=== PATIENT | female | born 1955 | race Asian ===

== ENCOUNTER 2016-10-20 11:15 | Observation (INO) | payer OTHER ==
[2016-10-20] VITALS (10 sets, daily range): BP systolic 73–192; BP diastolic 45–95; PULSE 62–78; RESP 16–18; TEMP 98.2–98.8; O2SAT 96–99
[~2016-10-20] VITALS: Ht 157.5 cm; Wt 59.0 kg
[~2016-10-20 11:15] MED LIST: ASPI81TA81; BETH25 PO; ENAL10TA PO; FLUT1SPR5 EACH NARE; ISOS1TAB PO; MAGN400T14 PO; METO25TA3 PO; MULTCAP13 PO; ZOCO40TA PO; ZOFR8TAB PO
--- NOTE | 2016-10-20 14:41 | EKG ---
Date Performed: 10/20/2016 Time Performed: 11:49:21 PTAGE: 61 years EKG: Sinus rhythm NONSPECIFIC ST & T-WAVE ABNORMALITY BORDERLINE ECG PREVIOUS TRACING : 04/15/2015 19.43 Since previous tracing, no significant change noted DOCTOR: Joanne Soler Interpretating Date/Time 10/20/2016 14:36:17
[2016-10-20] MEDS ORDERED: SODIUM CHLORIDE 0.9% FLUSH 5 ML FLUSH IVF PRN ×2 (15:30→16:00)
[2016-10-20] MEDS ORDERED: ENAL10TA PO (15:52)
[2016-10-20] MEDS ORDERED: ISOS30TA3 PO (15:52)
[2016-10-20] MEDS ORDERED: METO50TA PO (15:52)
[2016-10-20] MEDS ORDERED: ZANT150T2 PO (15:52)
--- NOTE | 2016-10-20 15:53 | PD ---
HPI Chief Complaint: Chest Pain Time Seen by Provider: 15:29 Travel History International Travel<30 days: No Contact w/Intl Traveler<30days: No Traveled to known affect area: No History of Present Illness HPI The patient was seen and examined in the presence of the nurse. She complains of chest pain. Location is center sternum. It feels like someone is punching her in the chest. It's been going on for one week. No alleviating factors. Symptoms are nonexertional. No radiation. She denies history of coronary disease but she doesn't seem real certain. She does see a [employer] for arrhythmia evaluation. She says she has an implanted loop recorder. No syncope. Symptoms have moderate severity. PFSH Past Medical History Hx Anticoagulant Therapy: Yes Blood Disorders: No Cancer: No Cardiovascular Problems: Yes Chest Pain: Yes Dementia: Yes Diabetes: Yes (history of PRE--DIET CONTROLLED) Endocrine: Yes GERD: Yes Genitourinary: No Headaches: Yes (post concussion syndrome) Hypertension: Yes Immune Disorder: No Musculoskeletal: Yes Neurologic: Yes (post-concussion syndrome, forgetfulness) Psychiatric: Yes (CLAUSTROPHOBIA) Reproductive: No Respiratory: No Menopausal: Yes Tubal Ligation: Yes Past Surgical History Neurologic Surgery: Yes (CERVICAL FUSION) Oral Surgery: Yes (DENTAL WORK) Pacemaker: No Other Surgery: Yes (liposuction) Social History Alcohol Use: No Tobacco Use: No (quit 5 yrs ago) Substance Use: No Allergies-Medications (Allergen,Severity, Reaction): Coded Allergies: Darvocet-N 100 (Verified Allergy, Severe, VERTIGO, 12/30/15) Flexeril (Verified Allergy, Severe, TACHYCARDIA, NAUSEA, 12/30/15) Percocet (Verified Allergy, Severe, VERTICO, 12/30/15) Reported Meds & Prescriptions Reported Meds & Active Scripts Active Reported Zantac (Ranitidine HCl) 150 Mg Tab 150 Mg PO BID Metoprolol Tartrate 50 Mg Tab 50 Mg PO BID Isosorbide Mononitrate ER (Isosorbide Mononitrate) 30 Mg Jac 30 Mg PO DAILY Enalapril (Enalapril Maleate) 10 Mg Tab 10 Mg PO BID Zocor (Simvastatin) 40 Mg Tab 40 Mg PO DAILY Urecholine (Bethanechol Chloride) 25 Mg Tab 25 Mg PO Q8HR Multi Complete (Multiple Vitamins W/ Minerals) 1 Cap Cap 1 Tab PO DAILY Magnebind-400 Rx (Magnesium-Calcium Carbonates-Folic Acid) 400-200-1 Mg Tab 1 Tab PO DAILY Flonase Allergy Relief Nasal [place] (Fluticasone Nasal [place]) 50 Mcg/Act [place] 50 Mcg EACH NARE BID Aspir-81 (Aspirin) 81 Mg Tabdr Review of Systems General / Constitutional: No: Fever Eyes: No: Visual changes HENT: No: Headaches Cardiovascular: Positive: Chest Pain or Discomfort Respiratory: No: Shortness of Breath Gastrointestinal: No: Abdominal Pain Genitourinary: No: Dysuria Musculoskeletal: No: Pain Skin: No Rash Neurologic: No: Weakness Psychiatric: No: Depression Endocrine: No: Polydipsia Hematologic/Lymphatic: No: Easy Bruising Physical Exam Narrative GENERAL: Well-nourished, well-developed patient in no apparent distress. SKIN: Warm and dry. HEAD: Atraumatic. Normocephalic. EYES: Pupils equal and round. No scleral icterus. No injection or drainage. ENT: No nasal bleeding or discharge. Mucous membranes pink and moist. NECK: Trachea midline. No JVD. CARDIOVASCULAR: Regular rate and rhythm. No murmur appreciated. RESPIRATORY: No accessory muscle use. Clear to auscultation. Breath sounds equal bilaterally. GASTROINTESTINAL: Abdomen soft, non-tender, nondistended. Hepatic and splenic margins not palpable. MUSCULOSKELETAL: No obvious deformities. No clubbing. No cyanosis. No edema. NEUROLOGICAL: Awake and alert. No obvious cranial nerve deficits. Motor grossly within normal limits. Normal speech. PSYCHIATRIC: Appropriate mood and affect; insight and judgment normal. Data Data Last Documented VS Vital Signs Date Time Temp Pulse Resp B/P Pulse Ox O2 Delivery O2 Flow Rate FiO2 10/20/16 16:35 171/86 10/20/16 16:14 66 16 99 Room Air 10/20/16 11:19 98.2 Orders Electrocardiogram (10/20/16 ) Electrocardiogram (10/20/16 15:26) Sodium Chloride 0.9% Flush (Ns Flush) (10/20/16 15:30) Chest, Single Ap (10/20/16 ) Basic Metabolic Panel (Bmp) (10/20/16 15:48) Ckmb (Isoenzyme) Profile (10/20/16 15:48) Complete Blood Count With Diff (10/20/16 15:48) Magnesium (Mg) (10/20/16 15:48) Prothrombin Time / Inr (Pt) (10/20/16 15:48) Act Partial Throm Time (Ptt) (10/20/16 15:48) Troponin I (10/20/16 15:48) Ecg Monitoring (10/20/16 15:48) Iv Access Insert/Monitor (10/20/16 15:48) Oximetry (10/20/16 15:48) Aspirin (Aspirin) (10/20/16 16:00) Sodium Chloride 0.9% Flush (Ns Flush) (10/20/16 16:00) Clonidine (Catapres) (10/20/16 16:00) Lidocaine 2% Viscous (Xylocaine 2% Visco (10/20/16 16:00) Al-Mag Hy-Si 40-40-4 Mg/Ml Liq (Mag-Al P (10/20/16 16:00) CKMB (10/20/16 15:50) CKMB% (10/20/16 15:50) Labs Laboratory Tests Test 1 15:50 White Blood Count 8.0 TH/MM3 Red Blood Count 4.53 MIL/MM3 Hemoglobin 13.3 GM/DL Hematocrit 39.8 % Mean Corpuscular Volume 87.9 FL Mean Corpuscular Hemoglobin 29.3 PG Mean Corpuscular Hemoglobin 33.3 % Concent Red Cell Distribution Width 13.4 % Platelet Count 280 TH/MM3 Mean Platelet Volume 7.5 FL Neutrophils (%) (Auto) 46.8 % Lymphocytes (%) (Auto) 45.4 % Monocytes (%) (Auto) 5.2 % Eosinophils (%) (Auto) 2.0 % Basophils (%) (Auto) 0.6 % Neutrophils # (Auto) 3.7 TH/MM3 Lymphocytes # (Auto) 3.6 TH/MM3 Monocytes # (Auto) 0.4 TH/MM3 Eosinophils # (Auto) 0.2 TH/MM3 Basophils # (Auto) 0.0 TH/MM3 CBC Comment DIFF FINAL Differential Comment Prothrombin Time 10.2 SEC Prothromb Time International 0.9 RATIO Ratio Activated Partial 27.5 SEC Thromboplast Time Sodium Level 141 MEQ/L Potassium Level 3.5 MEQ/L Chloride Level 106 MEQ/L Carbon Dioxide Level 25.9 MEQ/L Anion Gap 9 MEQ/L Blood Urea Nitrogen 9 MG/DL Creatinine 0.88 MG/DL Estimat Glomerular Filtration 65 ML/MIN Rate Random Glucose 102 MG/DL Calcium Level 9.3 MG/DL Magnesium Level 2.3 MG/DL Total Creatine Kinase 128 U/L Creatine Kinase MB 0.6 NG/ML Troponin I LESS THAN 0.02 NG/ML MDM Medical Decision Making Medical Screen Exam Complete: Yes Emergency Medical Condition: Yes Medical Record Reviewed: Yes Differential Diagnosis Differential diagnosis includes SD, angina, pericarditis, pleurisy, GERD, anxiety. Narrative Course I have reviewed the patient's electronic medical record. IV placed I reviewed the EKG shows sinus rhythm with no ST elevation I reviewed the chest x-ray which is normal Extended cardiac monitoring shows sinus rhythm without significant ectopy CBC is normal Metabolic profile is normal CK is normal Troponin is normal Coagulation studies are normal I gave her an aspirin and a dose of clonidine for accelerated hypertension of 195 systolic Also given a dose of GI cocktail On recheck she feels better. Blood pressure is 170 systolic Workup here is negative. She has a couple of risk factors for coronary disease and will be a 23 hour observation in the chest pain center to rule out cardiac cause of her symptoms. Diagnosis Primary Impression: Chest pain in adult Additional Impression: Elevated blood pressure Admitting Information Admitting Physician Requests: Observation Naren Staley MD Oct 20, 2016 15:53
[2016-10-20] MEDS ORDERED: ASPIRIN 325 MG TAB PO ONE (16:00)
[2016-10-20] MEDS ORDERED: LIDOCAINE VISCOUS 2% SOLN 15 ML UDC PO ONE (16:00)
[2016-10-20] MEDS ORDERED: cloNIDine HCL 0.2 MG TAB PO ONE (16:00)
[2016-10-20] MEDS ORDERED: ALUMINUM/MAGNESIUM/SIMETH 30 ML CUP PO ONE (16:00)
[2016-10-20 16:09] LABS: AUTOMATED NEUTROPHIL # 3.7 TH/MM3 (1.8-7.7); BASOPHIL % 0.6 % (0.0-2.0); EOSINOPHIL # 0.2 TH/MM3 (0-0.4); HEMATOCRIT 39.8 % (35.0-46.0); HEMO FLAGS DIFF FINAL; LYMPH % 45.4 % (9.0-44.0); LYMPHOCYTE # 3.6 TH/MM3 (1.0-4.8); MEAN CELL VOLUME 87.9 FL (80.0-100.0); MEAN CORPUSCULAR HEMOGLOBIN 29.3 PG (27.0-34.0); MEAN CORPUSCULAR HGB CONC 33.3 % (32.0-36.0); MONO % 5.2 % (0.0-8.0); NEUT % 46.8 % (16.0-70.0); PLATELET COUNT 280 TH/MM3 (150-450); RED BLOOD COUNT 4.53 MIL/MM3 (4.00-5.30); RED CELL DISTRIBUTION WIDTH 13.4 % (11.6-17.2)
--- NOTE | 2016-10-20 16:09 | RADRPT ---
EXAM DATE/TIME: 10/20/2016 15:35 [facility] COMPARISON: No previous studies available for comparison. INDICATIONS : Chest Pain, Heart Palpitations, Short of Breath. MEDICAL HISTORY : None. SURGICAL HISTORY : Loop Recorder. ENCOUNTER: Initial ACUITY: 1 day PAIN SCORE: 9/10 LOCATION: Bilateral chest FINDINGS: A single view of the chest demonstrates the lungs to be symmetrically aerated without evidence of mas s, infiltrate or effusion. The cardiomediastinal contours are unremarkable. Osseous structures are intact. CONCLUSION: 1. No focal consolidation. Mildly tortuous aorta. Loop recorder overlies left lower chest. Ladarius Rogers MD on October 20, 2016 at 16:07 Board Certified Radiologist. This report was verified electronically.
[2016-10-20 16:22] LABS: APTT (PATIENT) 27.5 SEC (24.3-30.1); INTERNATIONAL NORMALIZED RATIO 0.9 RATIO; PROTHROMBIN TIME - PATIENT 10.2 SEC (9.8-11.6)
[2016-10-20 16:32] LABS: ANION GAP 9 MEQ/L (5-15); BICARBONATE 25.9 MEQ/L (21.0-32.0); BLOOD UREA NITROGEN 9 MG/DL (7-18); CHLORIDE 106 MEQ/L (98-107); GLOMERULAR FILTRATION RATE 65 ML/MIN (>89); MAGNESIUM 2.3 MG/DL (1.5-2.5); POTASSIUM 3.5 MEQ/L (3.5-5.1); SODIUM (NA) 141 MEQ/L (136-145)
[2016-10-20 16:35] LABS: CREATINE KINASE 128 U/L (26-192)
[2016-10-20 16:48] LABS: CKMB 0.6 NG/ML (0.5-3.6)
[2016-10-20] MEDS ORDERED: NITROGLYCERIN 0.4 MG SL 25 TABS/BTL SL PRN (18:00)
[2016-10-20] MEDS ORDERED: ONDANSETRON HCL 4 MG/2 ML VIAL IV PRN (18:00)
[2016-10-20] MEDS ORDERED: NON-FORMULARY DRUG (Simvastatin (Zocor) 40 MG) PO SCH (18:45)
[2016-10-20] MEDS ORDERED: ACETAMINOPHEN 325 MG TAB PO PRN (18:45)
[2016-10-20] MEDS ORDERED: cloNIDine HCL 0.1 MG TAB PO PRN (19:00)
[2016-10-20 19:23] LABS: AMYLASE 45 U/L (25-115)
--- NOTE | 2016-10-20 19:35 | MH ---
cc: SCARLETT CHERY MD DATE OF ADMISSION 10/20/2016 1955 CHIEF COMPLAINT Chest pain HISTORY OF PRESENT ILLNESS This is a 61-year-old patient who presents to the emergency room with a week of retrosternal pain she describes as someone punching her in her chest. For the past week, the discomfort has waxed and waned, generally lasting 1-2 minutes, happens about 3-4 times a day. However, today her episodes have been longer and increased in frequency. No associated symptoms. She also has left-sided sharp pain. She denies this pain is a radiation from her chest pain and is a separate pain that also has been hurting for approximately a week. Precipitating factor is unknown. It does hurt for her to touch the area, more so on the right than the left anterior chest to palpation. No relieving factors. Also is complaining of abdominal pain which seems to be chronic in nature. She has been diagnosed with gastroparesis. PAST MEDICAL HISTORY 1. She has post concussion syndrome from a fall two years ago. Since that time, she is forgetful. 2. She has syncopal episodes. 3. Gastroparesis. PAST SURGICAL HISTORY 1. Tubal ligation 2. Cervical fusion 3. Loop recorder placed 08/25/2016 FAMILY HISTORY Noncontributory for any early onset cardiovascular disease. SOCIAL HISTORY She quit smoking cigarettes five years ago. Prior to that, she smoked one-pack of cigarettes in a week's time, smoked for 18 years, will have an occasional alcohol beverage. Denies any illegal drug use. Does have known hypertension and hyperlipidemia. No known diabetes. Believes her triglycerides are high as well and her family physician has been monitoring her triglyceride level as she is not on medication for triglycerides. PAST CARDIAC TESTING She has never had any formal cardiac testing as far as a treadmill or chemical stress test. She has been following with Dr. Moore. Prior to Dr. Moore, she followed with Dr. Merary Nathan before insurance changes. MEDICATIONS Current include 1. Zofran 8 mg p.o. t.i.d. 2. Enalapril 10 mg b.i.d. 3. Metoprolol tartrate 50 mg b.i.d. 4. Fluticasone 50 mcg p.r.n. 5. Simvastatin 40 mg daily, 6. Ranitidine 150 mg b.i.d. 7. Multivitamin daily. 8. Isosorbide mononitrate 30 mg daily. 9. Aspirin 81 mg daily. 10. Magnesium/Calcium/Folic acid 1 tablet daily. 11. Urecholine 25 mg q.i.d. ALLERGIES FLEXERIL DARVOCET PERCOCET (all those medications cause her heart to race and makes her head spin). She is able to take Tylenol without effect. REVIEW OF SYSTEMS GENERAL: No recent illness, fevers, chills, fatigue, malaise, has generalized weakness since her fall two years ago. This is unchanged. HEENT: No headache or visual changes, nasal congestion or dysphagia. CARDIOVASCULAR: As stated above. Denies palpitations intermittent leg pain, dizziness. RESPIRATORY: She has had a cough for two days. No wheeze, hemoptysis. No sputum production. No shortness of breath. In fact, states for two days he has had uncontrollable coughing and also chest tightness and she coughs so bad she can "I almost vomit". ABDOMEN: No bowel changes. Reports chronic discomfort due to gastroparesis for which she has Botox injections; the last injection early August. No blood in stool or dark stool, has chronic nausea. Reports good appetite. : No dysuria or urgency, frequency, hematuria. EXTREMITIES: No lower leg edema or pain. MUSCULOSKELETAL: No change in range of motion, no discomfort. No trauma that she aware of. NEUROLOGIC: No difficulty with balance, motor or sensory deficits. Reports chronic dizziness since her fall two years ago. was following with a neurologist, since no longer needs to follow with him. PSYCHIATRIC: No anxiety or depression, situational stress. PHYSICAL EXAMINATION VITAL SIGNS: Temperature 98.2, pulse 72, respiratory 16, blood pressure 142/74. It is noted blood pressures in the emergency room are elevated at 183/89 and 192/95. GENERAL: She is alert, well-nourished, well-developed in no acute distress, pleasant female HEAD: Normocephalic, atraumatic. EYES: Sclerae clear. Pupils are equal and round. OROPHARYNX: Mucous membranes are pink and moist. NECK: Supple. Trachea is midline. CARDIOVASCULAR: Regular rate and rhythm with a slight systolic murmur 2/6 with no rub or gallop. No JVD. S1-S2. No S3. No S4. RESPIRATORY: Clear lungs throughout bilateral with no crackles, wheeze or rhonchi. She is nonlabored, speaking full sentences. Has A symmetrical chest rise. ABDOMEN: Soft, nondistended. No masses. Positive bowel tones. Tender in the epigastric area upon palpation. BACK: No CVA tenderness. No scoliosis. EXTREMITIES: Pulses +2 x4. No dependent edema. MUSCULOSKELETAL: Normal tone x4. No obvious deformities. She is tender in her right and left anterior chest on palpation, more so on the right anterior chest. NEUROLOGIC: Cranial nerves II-XII grossly intact. Motor strength 5/5. PSYCHIATRIC: She is alert and oriented x3. has appropriate mood, insight and judgment, pleasant affect. SKIN: Warm and dry. Normal turgor, normal texture and a brisk cap refill. LABORATORY CBC is unremarkable. Chemistry is unremarkable. First set of cardiac enzymes are negative. Coagulation is unremarkable. IMAGING STUDIES Chest x-ray read by the radiologist has a conclusion of No focal consolidation. Mildly tortuous aorta. Loop recorder overlies left lower chest. CARDIOLOGY STUDIES First EKG shows a normal sinus rhythm with nonspecific ST and T-wave abnormalities. ASSESSMENT/PLAN 1. Chest pain. Patient has been admitted to the chest pain center. She will undergo three sets of EKGs and cardiac enzymes. She will seen and evaluated by Dr. Scarlett Chery. This has all been discussed with the patient. She is agreeable to this plan of care. Discussed the likelihood with patient she will have some form of stress test tomorrow and she is agreeable to this plan of care. At this time. she is not confident that she would be able to walk on a treadmill. We will reassess in the a.m. 2. Gastroesophageal reflux disease. GI cocktail was provided by emergency room physician. She states this has helped her somewhat. Reordered her Zantac 150 mg b.i.d. 3. Hypertension. We will continue to monitor the patient while in the chest pain center. I have reordered her antihypertensive. 4. Abdominal discomfort. This seems to be more related to her chronic gastroparesis. Have reordered her prior gastrointestinal medications and ordered an amylase and lipase. Dictated by LANIE Kyle MD ELY Gómez/ /6:41 PM /10:02 AM
[2016-10-20 20:07] LABS: CREATINE KINASE 135 U/L (26-192)
[2016-10-20 20:19] LABS: CKMB LESS THAN 0.5 NG/ML (0.5-3.6)
[2016-10-20] MEDS ORDERED: METOPROLOL TARTRATE 50 MG TAB PO SCH (21:00)
[2016-10-20] MEDS: SODIUM CHLORIDE 0.9% FLUSH 5 ML FLUSH IVF SCH (21:00)
[2016-10-20] MEDS: ENALAPRIL MALEATE 10 MG TAB PO SCH (21:00)
[2016-10-20] MEDS ORDERED: RANITIDINE HCL 150 MG TAB PO SCH (21:00)
[2016-10-20] MEDS ORDERED: BETHANECHOL CHL 25 MG TAB PO SCH (22:00)
[2016-10-20 22:40] LABS: CREATINE KINASE 95 U/L (26-192)
[2016-10-21] VITALS (7 sets, daily range): BP systolic 104–147; BP diastolic 67–77; PULSE 55–66; RESP 18; TEMP 97.6–98.6; O2SAT 94–98
[2016-10-21] MEDS: FLUTICASONE PROPIONATE 50 MCG/ACT 16 GM NASAL SPRAY EACH NARE SCH ×2 (00:33→08:46)
[2016-10-21] MEDS: FAMOTIDINE 20 MG TAB PO SCH ×2 (00:33→08:48)
[2016-10-21] MEDS: SODIUM CHLORIDE 0.9% FLUSH 5 ML FLUSH IVF SCH (08:48)
[2016-10-21] MEDS ORDERED: MULTIPLE VITAMINS PO SCH (09:00)
[2016-10-21] MEDS ORDERED: [UNRECOGNIZED DRUG - OTHER] PO SCH (09:00)
[2016-10-21] MEDS ORDERED: ISOSORBIDE MONONITRATE 30 MG TAB PO SCH (09:00)
[2016-10-21] MEDS ORDERED: [UNRECOGNIZED DRUG - OTHER] PO SCH (09:00)
[2016-10-21] MEDS ORDERED: MULTIVITAMINS/MINERALS THERAPEUTIC TAB PO SCH (09:00)
[2016-10-21] MEDS ORDERED: ASPIRIN 325 MG TAB PO SCH (09:00)
[2016-10-21] MEDS ORDERED: PRAVASTATIN SOD 80 MG TAB PO SCH (09:00)
[2016-10-21] MEDS ORDERED: MINERALS PO SCH (09:00)
--- NOTE | 2016-10-21 11:23 | EKG ---
Date Performed: 10/20/2016 Time Performed: 19:25:24 PTAGE: 61 years EKG: Sinus rhythm MODERATE ST DEPRESSION PROLONGED QT INTERVAL ABNORMAL ECG PREVIOUS TRACING : 10/20/2016 11.49 DOCTOR: Nick Chery Interpretating Date/Time 10/21/2016 11:22:08
[2016-10-21] MEDS: ENALAPRIL MALEATE 10 MG TAB PO SCH (11:45)
--- NOTE | 2016-10-21 13:31 | HHI.DCPOC ---
Discharge Care Plan Diagnosis: (1) Chest pain, atypical Goals to Promote Your Health * To prevent worsening of your condition and complications * To maintain your health at the optimal level Directions to Meet Your Goals Take your medications as prescribed Follow your dietary instruction Follow activity as directed Keep your appointments as scheduled Take your immunizations and boosters as scheduled If your symptoms worsen call your PCP, if no PCP go to Urgent Care Center or Emergency Room Smoking is Dangerous to Your Health. Avoid second hand smoke Call the 24-hour hour crisis hotline for domestic abuse at Oscar Santana Oct 21, 2016 13:31
--- NOTE | 2016-10-21 15:02 | EKG ---
Date Performed: 10/20/2016 Time Performed: 21:43:23 PTAGE: 61 years EKG: Sinus rhythm Nonspecific ST and T wave abnormalities PROLONGED QT INTERVAL ABNORMAL ECG PREVIOUS TRACING : 10/20/2016 19.25 Since previous tracing, no significant change noted DOCTOR: Chris Gunter Interpretating Date/Time 10/21/2016 15:00:51
[2017-01-31] MEDS ORDERED: ZOFR8TAB PO (10:38)
[2017-01-31] MEDS ORDERED: METF500T PO (10:39)
== END 2016-10-21 15:23 | disposition home or self-care (01) ==
LOC: NEPC 11:15 → NEDA 17:30 → NEPHCDU 22:12
PROVIDERS: ADMIT Internal Medicine Interventional Cardiology; ATTEND Internal Medicine Interventional Cardiology
DX: R07.89 Other chest pain (principal); I10 Essential (primary) hypertension; R94.31 Abnormal electrocardiogram [ECG] [EKG]; K21.9 Gastro-esophageal reflux disease without esophagitis; E78.5 Hyperlipidemia, unspecified; K31.84 Gastroparesis; F40.240 Claustrophobia; Z87.891 Personal history of nicotine dependence
CPT/HCPCS: 71010; 80048; 82150; 82550; 82552; 83690; 83735; 84484; 85025; 85610; 85730; 93005; 99285; G0378; J2405

== ENCOUNTER 2016-10-24 02:02 | Emergency (ER) | payer OTHER ==
[~2016-10-24 02:02] MED LIST changes: -ISOS1TAB PO; +ISOS30TA3 PO; -METO25TA3 PO; +METO50TA PO; +ZANT150T2 PO; -ZOFR8TAB PO
[2016-10-24 02:15] VITALS: BP 183/89; PULSE 71; RESP 16; TEMP 97.9; O2SAT 96
[2016-10-24 02:40] VITALS: BP 176/85; PULSE 64; RESP 18; O2SAT 96
[2016-10-24] MEDS ORDERED: ONDANSETRON HCL 4 MG/2 ML VIAL IVP ONE (03:15)
[2016-10-24] MEDS ORDERED: KETOROLAC TROMETHAMINE 30 MG/ML (IVP) VIAL IVP ONE (03:15)
[2016-10-24] MEDS ORDERED: SODIUM CHLORIDE 0.9% FLUSH 5 ML FLUSH IVF PRN (03:15)
[2016-10-24 04:01] LABS: AUTOMATED NEUTROPHIL # 5.3 TH/MM3 (1.8-7.7); BASOPHIL # 0.1 TH/MM3 (0-0.2); BASOPHIL % 0.7 % (0.0-2.0); EOSINOPHIL # 0.1 TH/MM3 (0-0.4); EOSINOPHIL % 1.2 % (0.0-4.0); HEMATOCRIT 41.5 % (35.0-46.0); HEMO FLAGS DIFF FINAL; LYMPH % 32.9 % (9.0-44.0); LYMPHOCYTE # 2.9 TH/MM3 (1.0-4.8); MEAN CELL VOLUME 87.5 FL (80.0-100.0); MEAN CORPUSCULAR HGB CONC 33.1 % (32.0-36.0); MONO % 4.4 % (0.0-8.0); NEUT % 60.8 % (16.0-70.0); PLATELET COUNT 291 TH/MM3 (150-450); RED BLOOD COUNT 4.75 MIL/MM3 (4.00-5.30); RED CELL DISTRIBUTION WIDTH 13.2 % (11.6-17.2); WHITE BLOOD COUNT 8.8 TH/MM3 (4.0-11.0)
[2016-10-24 04:08] VITALS: RESP 18; O2SAT 95
[2016-10-24 04:09] LABS: ALKALINE PHOSPHATASE 93 U/L (45-117); INTERNATIONAL NORMALIZED RATIO 0.9 RATIO; PROTHROMBIN TIME - PATIENT 9.8 SEC (9.8-11.6); TOTAL BILIRUBIN ADULT 0.3 MG/DL (0.2-1.0)
[2016-10-24 04:11] LABS: ALT (GPT) 30 U/L (10-53); ANION GAP 10 MEQ/L (5-15); AST (GOT) 38 U/L (15-37); BICARBONATE 23.7 MEQ/L (21.0-32.0); BLOOD UREA NITROGEN 12 MG/DL (7-18); CHLORIDE 107 MEQ/L (98-107); GLOMERULAR FILTRATION RATE 68 ML/MIN (>89); POTASSIUM 4.1 MEQ/L (3.5-5.1); SODIUM (NA) 141 MEQ/L (136-145)
--- NOTE | 2016-10-24 04:18 | PD ---
HPI Chief Complaint: Abdominal Pain Time Seen by Provider: 02:55 Travel History International Travel<30 days: No Contact w/Intl Traveler<30days: No Traveled to known affect area: No History of Present Illness HPI 61yo F with PMH of gastroparesis presents to the ED with c/o abdominal pain since this evening. States she had similar pain daily but it was more severe today. Associated with nausea. Pt also found that her blood pressure was very elevated at home with systolic in the 200s so she took amlodipine 10mg and her blood pressure improved along with her headache that improved. Denies any fever , cough, chest pain, sob, vomiting, urinary complaint, focal weakness or numbness. PFSH Past Medical History Hx Anticoagulant Therapy: Yes Blood Disorders: No Heart Rhythm Problems: Yes (AICD/LOOP RECORDER PLACED 08/25/16) Cancer: No Cardiac Catheterization: Yes Cardiovascular Problems: Yes High Cholesterol: Yes Chest Pain: Yes Congestive Heart Failure: No Dementia: Yes Diabetes: No Diminished Hearing: No Endocrine: Yes GERD: Yes Genitourinary: No Headaches: Yes (post concussion syndrome) Hypertension: Yes Immune Disorder: No Musculoskeletal: Yes Neurologic: Yes (post-concussion syndrome, forgetfulness) Psychiatric: Yes (CLAUSTROPHOBIA) Reproductive: No Respiratory: No ?: Not Menopausal: Yes Tubal Ligation: Yes Past Surgical History Coronary Artery Bypass Graft: No Neurologic Surgery: Yes (CERVICAL FUSION) Oral Surgery: Yes (DENTAL WORK) Pacemaker: No Other Surgery: Yes (liposuction) Social History Alcohol Use: No Tobacco Use: No (quit 5 yrs ago) Substance Use: No Allergies-Medications (Allergen,Severity, Reaction): Coded Allergies: Darvocet-N 100 (Verified Allergy, Severe, VERTIGO, 10/24/16) Flexeril (Verified Allergy, Severe, TACHYCARDIA, NAUSEA, 10/24/16) Percocet (Verified Allergy, Severe, VERTICO, 10/24/16) Reported Meds & Prescriptions Reported Meds & Active Scripts Active Reported Zantac (Ranitidine HCl) 150 Mg Tab 150 Mg PO BID Metoprolol Tartrate 50 Mg Tab 50 Mg PO BID Isosorbide Mononitrate ER (Isosorbide Mononitrate) 30 Mg Jac 30 Mg PO DAILY Enalapril (Enalapril Maleate) 10 Mg Tab 10 Mg PO BID Zocor (Simvastatin) 40 Mg Tab 40 Mg PO DAILY Urecholine (Bethanechol Chloride) 25 Mg Tab 25 Mg PO Q8HR Multi Complete (Multiple Vitamins W/ Minerals) 1 Cap Cap 1 Tab PO DAILY Magnebind-400 Rx (Magnesium-Calcium Carbonates-Folic Acid) 400-200-1 Mg Tab 1 Tab PO DAILY Flonase Allergy Relief Nasal [place] (Fluticasone Nasal [place]) 50 Mcg/Act [place] 50 Mcg EACH NARE BID Aspir-81 (Aspirin) 81 Mg Tabdr Review of Systems Except as stated in HPI: all other systems reviewed are Neg Physical Exam Narrative GENERAL: 61yo F in mild distress. SKIN: Warm and dry. HEAD: Atraumatic. Normocephalic. EYES: Pupils equal and round. No scleral icterus. No injection or drainage. ENT: No nasal bleeding or discharge. Mucous membranes pink and moist. NECK: Trachea midline. No JVD. CARDIOVASCULAR: Regular rate and rhythm. No murmur appreciated. RESPIRATORY: No accessory muscle use. Clear to auscultation. Breath sounds equal bilaterally. GASTROINTESTINAL: Abdomen soft, +TTP LLQ. Epigastric region. No rebound tenderness or guarding. MUSCULOSKELETAL: No obvious deformities. No clubbing. No cyanosis. No edema. NEUROLOGICAL: Awake and alert. No obvious cranial nerve deficits. Motor grossly within normal limits. Normal speech. PSYCHIATRIC: Appropriate mood and affect; insight and judgment normal. Data Data Last Documented VS Vital Signs Date Time Temp Pulse Resp B/P Pulse Ox O2 Delivery O2 Flow Rate FiO2 10/24/16 05:50 98.4 75 18 149/87 95 Room Air Orders Complete Blood Count With Diff (10/24/16 03:04) Comprehensive Metabolic Panel (10/24/16 03:04) Lipase (10/24/16 03:04) Prothrombin Time / Inr (Pt) (10/24/16 03:04) Act Partial Throm Time (Ptt) (10/24/16 03:04) Ct Abd/Pel W Iv Contrast(Rout) (10/24/16 03:04) Iv Access Insert/Monitor (10/24/16 03:04) Ecg Monitoring (10/24/16 03:04) Oximetry (10/24/16 03:04) Ondansetron Inj (Zofran Inj) (10/24/16 03:15) Sodium Chloride 0.9% Flush (Ns Flush) (10/24/16 03:15) Electrocardiogram (10/24/16 03:04) Ketorolac Inj (Toradol Inj) (10/24/16 03:15) Iohexol 350 Inj (Omnipaque 350 Inj) (10/24/16 04:41) Acetaminophen (Tylenol) (10/24/16 05:15) Morphine Inj (Morphine Inj) (10/24/16 05:30) Labs Laboratory Tests Test 10/24/16 03:41 White Blood Count 8.8 TH/MM3 Red Blood Count 4.75 MIL/MM3 Hemoglobin 13.8 GM/DL Hematocrit 41.5 % Mean Corpuscular Volume 87.5 FL Mean Corpuscular Hemoglobin 29.0 PG Mean Corpuscular Hemoglobin 33.1 % Concent Red Cell Distribution Width 13.2 % Platelet Count 291 TH/MM3 Mean Platelet Volume 7.8 FL Neutrophils (%) (Auto) 60.8 % Lymphocytes (%) (Auto) 32.9 % Monocytes (%) (Auto) 4.4 % Eosinophils (%) (Auto) 1.2 % Basophils (%) (Auto) 0.7 % Neutrophils # (Auto) 5.3 TH/MM3 Lymphocytes # (Auto) 2.9 TH/MM3 Monocytes # (Auto) 0.4 TH/MM3 Eosinophils # (Auto) 0.1 TH/MM3 Basophils # (Auto) 0.1 TH/MM3 CBC Comment DIFF FINAL Differential Comment Prothrombin Time 9.8 SEC Prothromb Time International 0.9 RATIO Ratio Activated Partial 28.0 SEC Thromboplast Time Sodium Level 141 MEQ/L Potassium Level 4.1 MEQ/L Chloride Level 107 MEQ/L Carbon Dioxide Level 23.7 MEQ/L Anion Gap 10 MEQ/L Blood Urea Nitrogen 12 MG/DL Creatinine 0.85 MG/DL Estimat Glomerular Filtration 68 ML/MIN Rate Random Glucose 136 MG/DL Calcium Level 9.4 MG/DL Total Bilirubin 0.3 MG/DL Aspartate Amino Transf 38 U/L (AST/SGOT) Alanine Aminotransferase 30 U/L (ALT/SGPT) Alkaline Phosphatase 93 U/L Total Protein 8.1 GM/DL Albumin 4.2 GM/DL Lipase 198 U/L [facility] Medical Decision Making Medical Screen Exam Complete: Yes Emergency Medical Condition: Yes Interpretation(s) EKG: Sinus bradycardia [id number]. Eleni axis. TWI V2. ST depression V3, V4. No ST segment elevation. Differential Diagnosis Diverticulitis vs. pancreatitis vs. gastroparesis vs. ACS Narrative Course 61yo F with gastroparesis here with worsening abdominal pain. Labs reviewed, no leukocytosis. H/H stable at 13.8/41.5. Normal lipase. CTa/p showed hepatic steatosis. Bilateral renal low densities likely cysts. No acute inflammatory process. Pt given toradol, morphine 2mg and acetaminophen with improvement of abdominal pain. Return precautions given. Diagnosis Primary Impression: Abdominal pain Qualified Code: R10.84 - Generalized abdominal pain Patient Instructions: General Instructions Departure Forms: Tests/Procedures Additional Instructions: Please follow up with your PMD in 1-2 days. Return to the ED if your symptoms worsen. Med/Other Pt SpecificInfo: No Change to Meds Disposition: 01 DISCHARGE HOME Condition: Stable SiegelBrigid muro Oct 24, 2016 04:18
[2016-10-24] MEDS ORDERED: IOHEXOL 350 MG/ML 10 ML VIAL (for RAD DIAG) IV ONE (04:41)
--- NOTE | 2016-10-24 05:06 | RADRPT ---
EXAM DATE/TIME: 10/24/2016 04:37 [facility] COMPARISON: No previous studies available for comparison. INDICATIONS : Epigastric pain with nausea. IV CONTRAST: 80 cc Omnipaque 350 (iohexol) IV ORAL CONTRAST: No oral contrast ingested. RADIATION DOSE: 5.61 CTDIvol (mGy) MEDICAL HISTORY : Hypertension. Gastroesophageal reflux disease. Hypercholesterolemia. SURGICAL HISTORY : Tubal ligation. cervical fusion, defibrilator ENCOUNTER: Initial ACUITY: 1 day PAIN SCALE: 10/10 LOCATION: abdomen TECHNIQUE: Volumetric scanning of the abdomen and pelvis was performed. Using automated exposure control and ad justment of the mA and/or kV according to patient size, radiation dose was kept as low as reasonably achievable to obtain optimal diagnostic quality images. FINDINGS: LOWER LUNGS: The visualized lower lungs are clear. LIVER: Decreased attenuation without lesion. There is no dilation of the biliary tree. No calcified gallst ones. SPLEEN: Normal size without lesion. PANCREAS: Within normal limits. KIDNEYS: Normal in size and shape. There is no mass, stone or hydronephrosis. Renal low densities are seen. ADRENAL GLANDS: Within normal limits. VASCULAR: There is no aortic aneurysm. BOWEL/MESENTERY: The stomach, small bowel, and colon demonstrate no acute abnormality. There is no free intraperitone al air or fluid. ABDOMINAL WALL: Within normal limits. RETROPERITONEUM: There is no lymphadenopathy. BLADDER: No wall thickening or mass. REPRODUCTIVE: Within normal limits. INGUINAL: There is no lymphadenopathy or hernia. MUSCULOSKELETAL: Within normal limits for patient age. CONCLUSION: 1. Hepatic steatosis. 2. Bilateral renal low densities likely with cysts. 3. No acute inflammatory process. Ray Chang MD on October 24, 2016 at 5:02 Board Certified Radiologist. This report was verified electronically.
[2016-10-24] MEDS ORDERED: ACETAMINOPHEN 325 MG TAB PO ONE (05:15)
[2016-10-24] MEDS ORDERED: MORPHINE SULFATE 4 MG/ML INJ IV PUSH ONE (05:30)
[2016-10-24 05:50] VITALS: BP 149/87; PULSE 75; RESP 18; TEMP 98.4; O2SAT 95
--- NOTE | 2016-10-24 14:26 | EKG ---
Date Performed: 10/24/2016 Time Performed: 04:01:07 PTAGE: 61 years EKG: SINUS BRADYCARDIA MODERATE ST DEPRESSION PROLONGED QT INTERVAL ABNORMAL ECG COnsider dipika septal infarct PREVIOUS TRACING : 10/20/2016 21.43 DOCTOR: Franco Mcintyre Interpretating Date/Time 10/24/2016 14:25:30
[2017-01-31] MEDS ORDERED: ZOFR8TAB PO (10:38)
[2017-01-31] MEDS ORDERED: METF500T PO (10:39)
== END 2016-10-24 06:11 | disposition home or self-care (01) ==
LOC: NEPE 02:02
DX: R10.9 Unspecified abdominal pain (principal); R94.31 Abnormal electrocardiogram [ECG] [EKG]; K31.84 Gastroparesis; E78.00 Pure hypercholesterolemia, unspecified; F03.90 Unspecified dementia, unspecified severity, without behavioral disturbance, psychotic disturbance, mood disturbance, and anxiety; K21.9 Gastro-esophageal reflux disease without esophagitis; I10 Essential (primary) hypertension; Z79.01 Long term (current) use of anticoagulants
CPT/HCPCS: 74177; 80053; 83690; 85025; 85610; 85730; 93005; 96374; 96375; 99284; J1885; J2270; J2405; Q9967

== ENCOUNTER → 2017-01-31 | Outpatient (CLI) | payer OTHER ==
[~2017-01-31] VITALS: Ht 157.5 cm; Wt 56.9 kg
[~2017-01-31] MED LIST changes: +ACET325T PO; +BOTU100P I-DERMAL; +CHLORHEXIDINE GLUCONATE 2 % 1 PACK (2 CLOTHS) TOPICAL PRN; +INSULIN HUMAN REGULAR 1,000 UNITS/10 ML VIAL SQ PRN; +LACTATED RINGER'S 1000 ML IV PRN; +METF500T PO; +METOPROLOL TARTRATE 25 MG TAB PO PRN; +MIRA33504 PO; +MULTTAB67 PO; +OMEGCAP PO; +ONABOTULINUMTOXINA INJ 100 UNITS/VIAL ONE; +POVIDONE IODINE 5% (ANTISEPSIS KIT) 4 APPLICATIONS EACH NARE PRN; +PROPOFOL 200 MG/20 ML AMP IV ONE; +SODIUM CHLORID 0.9% 500 ML IV PRN; +VITATAB43 PO; +ZOFR8TAB PO
[2017-01-31 10:42] VITALS: BP 134/74; PULSE 62; RESP 16; TEMP 97.4; O2SAT 99
[2017-01-31 12:18] VITALS: TEMP 97.4
[2017-01-31 12:40] VITALS: BP 114/74; PULSE 63; RESP 18; O2SAT 96
--- NOTE | 2017-02-02 06:32 | MR ---
cc: ZONIA MERAZ DATE 01/31/2017 DATE OF 1955 INDICATION FOR PROCEDURE Patient with gastroparesis symptoms. Botox injection is being performed at this time via upper endoscopy. MONITORING Pulse oximeter, EKG and blood pressure monitor. PROCEDURE NOTE After informed consent was obtained and procedure, risks and benefits were explained including risks of bleeding, sepsis, perforation and the risk of anesthesia, the patient was placed in the left lateral position. The video endoscope was inserted into the esophagus under direct visualization. The esophagus was found to be normal throughout. The EG junction was patent. The stomach was entered. The gastric mucosa was visualized and was felt to be normal throughout. In the retroflex view a small 4-mm polyp was found in the fundal region. This was biopsied off and removed. The scope was passed through the pyloric ring into the first, second and third portions of the duodenum. The scope was pulled back to the antral pyloric region where injection of Botox was achieved in four equal amounts of 1 cc each. A total of 100 units of Botox was delivered in this fashion to four quadrants at the antral pyloric region. Injection appeared to proceed adequately. The scope was then gradually withdrawn. The patient tolerated the procedure well. No immediate complication noted. IMPRESSION 1. Status post Botox injection to the antrum and pyloric region where 100 units of Botox was delivered as outlined above. 2. Small gastric polyp in the fundal region, biopsied off and removed. PLAN 1. Follow up the biopsies of the polyp removed. 2. Follow up clinically as an outpatient to determine the effectiveness of Botox injection for her gastroparesis. I discussed this with the patient and her . MD DUNG Loera/JUSTIN /1:08 PM /6:21 AM
== END ==
LOC: HEND 09:24
PROVIDERS: ATTEND Internal Medicine Gastroenterology
DX: K31.7 Polyp of stomach and duodenum (principal); K31.84 Gastroparesis; R11.0 Nausea
CPT/HCPCS: 88305

== ENCOUNTER 2017-02-05 12:48 | Day surgery (SDC) | payer OTHER ==
[~2017-02-05] VITALS: Ht 157.5 cm; Wt 57.7 kg
[~2017-02-05 12:48] MED LIST changes: -ACET325T PO; -BOTU100P I-DERMAL; -CHLORHEXIDINE GLUCONATE 2 % 1 PACK (2 CLOTHS) TOPICAL PRN; -INSULIN HUMAN REGULAR 1,000 UNITS/10 ML VIAL SQ PRN; -LACTATED RINGER'S 1000 ML IV PRN; -METOPROLOL TARTRATE 25 MG TAB PO PRN; -MIRA33504 PO; -MULTTAB67 PO; -OMEGCAP PO; -ONABOTULINUMTOXINA INJ 100 UNITS/VIAL ONE; -POVIDONE IODINE 5% (ANTISEPSIS KIT) 4 APPLICATIONS EACH NARE PRN; -PROPOFOL 200 MG/20 ML AMP IV ONE; -SODIUM CHLORID 0.9% 500 ML IV PRN; -VITATAB43 PO
[2017-02-05] MEDS ORDERED: ceFAZolin 2 GM PREMIX 50 ML IV SCH (13:30)
[2017-02-05] MEDS ORDERED: MUPIROCIN 2% OINT 1 APPLIC/GM SYR NASAL SCH (13:30)
[2017-02-05] MEDS ORDERED: POVIDONE IODINE 5% (ANTISEPSIS KIT) 4 APPLICATIONS EACH NARE SCH (13:30)
[2017-02-05] MEDS ORDERED: VANCOMYCIN 1000 MG/NS 250 ML IV SCH ×2 (13:30)
[2017-02-05] MEDS ORDERED: CHLORHEXIDINE GLUCONATE 2 % 1 PACK (2 CLOTHS) TOPICAL SCH (13:30)
[2017-02-05] MEDS ORDERED: NS 1000 ML IV SCH (13:30)
[2017-02-05 13:41] VITALS: BP 135/78; PULSE 64; RESP 16; TEMP 98.2; O2SAT 97
[2017-02-05 13:43] LABS: AUTOMATED NEUTROPHIL # 2.6 TH/MM3 (1.8-7.7); BASOPHIL % 0.7 % (0.0-2.0); EOSINOPHIL # 0.2 TH/MM3 (0-0.4); EOSINOPHIL % 2.3 % (0.0-4.0); HEMATOCRIT 35.7 % (35.0-46.0); HEMO FLAGS DIFF FINAL; LYMPHOCYTE # 3.3 TH/MM3 (1.0-4.8); MEAN CELL VOLUME 86.9 FL (80.0-100.0); MEAN CORPUSCULAR HGB CONC 34.5 % (32.0-36.0); MONO % 6.7 % (0.0-8.0); NEUT % 39.3 % (16.0-70.0); PLATELET COUNT 248 TH/MM3 (150-450); RED CELL DISTRIBUTION WIDTH 13.3 % (11.6-17.2); WHITE BLOOD COUNT 6.5 TH/MM3 (4.0-11.0)
[2017-02-05 13:54] LABS: APTT (PATIENT) 26.1 SEC (24.3-30.1); INTERNATIONAL NORMALIZED RATIO 0.9 RATIO; PROTHROMBIN TIME - PATIENT 10.4 SEC (9.8-11.6)
[2017-02-05] MEDS ORDERED: VITATAB43 PO (13:56)
[2017-02-05] MEDS ORDERED: OMEGCAP PO (13:56)
[2017-02-05] MEDS ORDERED: BOTU100P I-DERMAL (13:56)
[2017-02-05] MEDS ORDERED: MULTTAB67 PO (13:56)
[2017-02-05] MEDS ORDERED: MIRA33504 PO (13:56)
[2017-02-05] MEDS ORDERED: ACET325T PO (13:56)
[2017-02-05 14:02] LABS: BICARBONATE 25.3 MEQ/L (21.0-32.0); POTASSIUM 3.6 MEQ/L (3.5-5.1)
[2017-02-05] MEDS ORDERED: MIDAZOLAM HCL 5 MG/5 ML VIAL ONE (14:42)
[2017-02-05] MEDS ORDERED: LIDOCAINE HCL 2% 50 ML VIAL ONE (14:45)
--- NOTE | 2017-02-05 20:12 | MA ---
cc: BECKY PEREZ M.D. TERESA TEJEDA DO DATE 02/05/2017 PROCEDURE Loop removal. INDICATION This is a 61-year-old white female with history of vasovagal syncope who had a loop recorder implanted by another physician. The patient came to my office complaining of pain at the site of the loop recorder. Since her diagnosis had been established previously and no arrhythmias were documented when the loop recorder was in place it was decided to remove the device. PROCEDURE IN DETAIL 1. Informed consent. 2. IV sedation by the anesthesia department was 4 mg of Versed and 100 micrograms of fentanyl. 3. Under sterile technique a 1-cm incision was performed in the upper segment of the loop recorder. Then the loop recorder was removed after creating a channel to release occluded adhesions. Therefore the loop recorder was finally removed after a few minutes of pulling. The device came with no breaks or segmentations and no significant bleeding was noted. At the end of the case a Steri-Strip was applied at the site. The patient tolerated procedure well and left the laboratory hemodynamically stable. IMPRESSION 1. Syncope status post loop recorder implantation. 2. Successful loop recorder removal. RECOMMENDATIONS Continue preventive maneuvers for vasovagal syncope. Follow up in my office in one week. MD KIM Camargo/RM /3:34 PM /8:01 PM RONAL
== END 2017-02-05 16:35 | disposition home or self-care (01) ==
LOC: HDOC 12:48 → HDIC 12:48 → HDOC 16:35
PROVIDERS: ATTEND Specialist
DX: Z45.09 Encounter for adjustment and management of other cardiac device (principal); R55 Syncope and collapse; I10 Essential (primary) hypertension; E11.9 Type 2 diabetes mellitus without complications
CPT/HCPCS: 33284; 80048; 85025; 85610; 85730; J2250; J3010

== ENCOUNTER 2017-08-20 16:16 | Emergency (ER) | payer OTHER ==
[~2017-08-20 16:16] MED LIST changes: +ACET325T PO; +BOTU100P I-DERMAL; -ENAL10TA PO; -MAGN400T14 PO; +MIRA33504 PO; -MULTCAP13 PO; +MULTTAB67 PO; +OMEGCAP PO; +VITATAB43 PO; -ZANT150T2 PO
[2017-08-20 16:19] VITALS: BP 214/105; PULSE 90; RESP 18; TEMP 98.4; O2SAT 99
[2017-08-20] MEDS ORDERED: POLY17S PO (16:57)
[2017-08-20] MEDS ORDERED: BETH25TA2 PO (16:57)
[2017-08-20 17:41] LABS: AUTOMATED NEUTROPHIL # 3.2 TH/MM3 (1.8-7.7); BASOPHIL % 0.7 % (0.0-2.0); EOSINOPHIL # 0.1 TH/MM3 (0-0.4); EOSINOPHIL % 1.6 % (0.0-4.0); HEMATOCRIT 39.5 % (35.0-46.0); HEMO FLAGS DIFF FINAL; LYMPH % 44.6 % (9.0-44.0); MEAN CELL VOLUME 89.2 FL (80.0-100.0); MEAN CORPUSCULAR HEMOGLOBIN 30.1 PG (27.0-34.0); MEAN CORPUSCULAR HGB CONC 33.7 % (32.0-36.0); MONO % 5.1 % (0.0-8.0); PLATELET COUNT 261 TH/MM3 (150-450); RED BLOOD COUNT 4.42 MIL/MM3 (4.00-5.30); RED CELL DISTRIBUTION WIDTH 13.3 % (11.6-17.2); WHITE BLOOD COUNT 6.6 TH/MM3 (4.0-11.0)
--- NOTE | 2017-08-20 17:41 | RADRPT ---
EXAM DATE/TIME: 08/20/2017 16:43 [facility] COMPARISON: CHEST SINGLE AP, October 20, 2016, 15:35. INDICATIONS : Chest pain and short of breath. MEDICAL HISTORY : Gastroparesis. SURGICAL HISTORY : None. ENCOUNTER: Initial ACUITY: 2 days PAIN SCORE: 7/10 LOCATION: middle lower chest. FINDINGS: A single view of the chest demonstrates the lungs to be symmetrically aerated without evidence of mas s, infiltrate or effusion. The cardiomediastinal contours are unremarkable. Osseous structures are intact. CONCLUSION: No acute disease. Logan Leigh MD FACR on August 20, 2017 at 17:39 Board Certified Radiologist. This report was verified electronically.
[2017-08-20] MEDS ORDERED: ONDANSETRON HCL 4 MG/2 ML VIAL IV PUSH ONE (17:45)
[2017-08-20] MEDS ORDERED: MORPHINE SULFATE 4 MG/ML INJ IV PUSH ONE (17:45)
[2017-08-20 18:00] LABS: APTT (PATIENT) 25.4 SEC (24.3-30.1); INTERNATIONAL NORMALIZED RATIO 0.9 RATIO
[2017-08-20 18:02] LABS: ANION GAP 10 MEQ/L (5-15); AST (GOT) 36 U/L (15-37); BICARBONATE 24.3 MEQ/L (21.0-32.0); BLOOD UREA NITROGEN 13 MG/DL (7-18); CHLORIDE 103 MEQ/L (98-107); GLOMERULAR FILTRATION RATE 55 ML/MIN (>89); MAGNESIUM 2.2 MG/DL (1.5-2.5); POTASSIUM 3.4 MEQ/L (3.5-5.1); SODIUM (NA) 137 MEQ/L (136-145)
[2017-08-20 18:04] LABS: ALT (GPT) 30 U/L (10-53)
[2017-08-20 18:05] LABS: BACTERIA, URINE RARE /hpf; BLOOD, URINE NEG (NEG); GLUCOSE,URINE NEG (NEG); KETONE, URINE NEG (NEG); NITRITE,URINE NEG (NEG); PH, URINE 6.5 (5.0-8.5); SQUAMOUS EPITHELIAL CELL URINE <1 /hpf (0-5); URINE COLOR LIGHT-YELLOW (YELLW/STRAW)
[2017-08-20 18:07] LABS: ALKALINE PHOSPHATASE 77 U/L (45-117); CREATINE KINASE 145 U/L (26-192); TOTAL BILIRUBIN ADULT 0.3 MG/DL (0.2-1.0)
[2017-08-20 18:16] VITALS: BP 160/80; PULSE 72; RESP 18; O2SAT 97
[2017-08-20 18:18] LABS: COMMENT (UR) CULT NOT INDICATED; CULTURE IF INDICATED CULT NOT INDICATED
[2017-08-20 18:19] LABS: CKMB 1.3 NG/ML (0.5-3.6)
--- NOTE | 2017-08-20 18:45 | PD ---
HPI Chief Complaint: Cardiac Complaint Time Seen by Provider: 17:17 Travel History International Travel<30 days: No Contact w/Intl Traveler<30days: No Traveled to known affect area: No History of Present Illness HPI 62-year-old female came to the emergency room with history of epigastric pain and left lower quadrant pain that as per her has been going on for past 1 month but today it got worse. She has history of gastroparesis and hence this pain is not new for her. The pain is sharp in nature and colicky. She has been feeling very bloated. She has been constipated for past 2 days and this morning she tried to have a bowel movement but it was low caliber. No history of nausea vomiting. She did look uncomfortable. Patient says that the pain comes and goes. Patient says this morning she took her blood pressure at home and it was 225 systolic which really concerned her and hence she came to the emergency room. Her blood pressure in triage was 214. There was blood test initiated in triage before I saw her. [facility] Past Medical History Narrative Medical List of her past medical, surgical, social and family history is reviewed from the nursing note. Hx Anticoagulant Therapy: Yes Blood Disorders: No Heart Rhythm Problems: Yes (AICD/LOOP RECORDER PLACED 08/25/16) Cancer: Yes (SKIN) Cardiac Catheterization: Yes Cardiovascular Problems: Yes High Cholesterol: Yes Chest Pain: No Congestive Heart Failure: No Dementia: Yes Diabetes: Yes Patient Takes Glucophage: Yes Diminished Hearing: No Endocrine: Yes (DIABETIC TYPE 2) Gastrointestinal Disorders: Yes (GATROPORESIS) GERD: Yes Glaucoma: No Genitourinary: No Headaches: Yes (post concussion syndrome) Hepatitis: No Hiatal Hernia: No Hypertension: Yes Immune Disorder: No Musculoskeletal: Yes Neurologic: Yes (post-concussion syndrome, forgetfulness,) Reproductive: No Respiratory: No Integumentary: No Thyroid Disease: No Menopausal: Yes Tubal Ligation: Yes Past Surgical History Abdominal Surgery: Yes (LIPOSUCTION) AICD: No Body Medical Devices: LOOP RECORDER Cardiac Surgery: Yes (CARDIAC CATH) Coronary Artery Bypass Graft: No Ear Surgery: No Endocrine Surgery: No Eye Surgery: No Genitourinary Surgery: No Gynecologic Surgery: No Joint Replacement: No Neurologic Surgery: Yes (CERVICAL FUSION) Oral Surgery: Yes (DENTAL WORK) Pacemaker: No Thoracic Surgery: Yes (LOOP RECORDER) Other Surgery: Yes (liposuction) Social History Alcohol Use: Yes (occ) Tobacco Use: No (quit 5 yrs ago) Substance Use: No Allergies-Medications (Allergen,Severity, Reaction): Coded Allergies: acetaminophen (Unverified Allergy, Severe, VERTICO, 08/21/17) cyclobenzaprine (Unverified Allergy, Severe, TACHYCARDIA, NAUSEA, 08/21/17) oxycodone (Unverified Allergy, Severe, VERTICO, 08/21/17) propoxyphene (Unverified Allergy, Severe, VERTIGO, 08/21/17) Comments List of her allergies reviewed from the nursing note. Reported Meds & Prescriptions Reported Meds & Active Scripts Active Reported Polyethylene Glycol 3350 Powder (Polyethylene Glycol) 17 Gram Pow 17 Gm PO DAILY Bethanechol 25 Mg Tab 25 Mg PO QID Botox Inj (Onabotulinumtoxina) 100 Unit Inj 100 Units I-DERMAL ONCE Vitamin S15-Zlpxc Acid (Cobalamine Combinations) 500-400 Mcg Tab 1 Tab PO DAILY Multiple Vitamin 1 Tab 1 Tab PO DAILY Metformin (Metformin HCl) 500 Mg Tab 500 Mg PO BIDPC With meals Metoprolol Tartrate 50 Mg Tab 50 Mg PO BID Isosorbide Mononitrate ER (Isosorbide Mononitrate) 30 Mg Jac 30 Mg PO DAILY Zocor (Simvastatin) 40 Mg Tab 40 Mg PO DAILY Aspir-81 (Aspirin) 81 Mg Tabdr Narrative Medication List of home medications reviewed from the nursing note. Review of Systems Except as stated in HPI: all other systems reviewed are Neg Gastrointestinal: Positive: Abdominal Pain, Constipation Physical Exam Narrative GENERAL: Awake, alert, moderate distress SKIN: Focused skin assessment warm/dry. HEAD: Atraumatic. Normocephalic. EYES: Pupils equal and round. No scleral icterus. No injection or drainage. ENT: No nasal bleeding or discharge. Mucous membranes pink and moist. NECK: Trachea midline. No JVD. CARDIOVASCULAR: Regular rate and rhythm. No murmur appreciated. RESPIRATORY: No accessory muscle use. Clear to auscultation. Breath sounds equal bilaterally. GASTROINTESTINAL: Abdomen soft, tender left lower quadrant, distended. Hepatic and splenic margins not palpable. MUSCULOSKELETAL: No obvious deformities. No clubbing. No cyanosis. No edema. NEUROLOGICAL: Awake and alert. No obvious cranial nerve deficits. Motor grossly within normal limits. Normal speech. PSYCHIATRIC: Appropriate mood and affect; insight and judgment normal. Data Data Last Documented VS Orders Orders Electrocardiogram (08/20/17 16:24) B-Type Natriuretic Peptide (08/20/17 16:24) Complete Blood Count With Diff (08/20/17 16:24) D-Dimer (08/20/17 16:24) Prothrombin Time / Inr (Pt) (08/20/17 16:24) Act Partial Throm Time (Ptt) (08/20/17 16:24) Chest, Single Ap (08/20/17 16:24) Comprehensive Metabolic Panel (08/20/17 16:26) Lipase (08/20/17 16:26) Ct Abd/Pel W/O Iv Contrast (08/20/17 ) Morphine Inj (Morphine Inj) (08/20/17 17:45) Ondansetron Inj (Zofran Inj) (08/20/17 17:45) Urinalysis - C+S If Indicated (08/20/17 17:38) Ckmb (Isoenzyme) Profile (08/20/17 17:04) Magnesium (Mg) (08/20/17 17:04) Troponin I (08/20/17 17:04) CKMB (08/20/17 17:04) CKMB% (08/20/17 17:04) Ed Discharge Order (08/20/17 19:28) Metoclopramide Inj (Reglan Inj) (08/20/17 19:30) Labs Laboratory Tests Test 08/20/17 17:04 08/20/17 17:45 White Blood Count 6.6 TH/MM3 Red Blood Count 4.42 MIL/MM3 Hemoglobin 13.3 GM/DL Hematocrit 39.5 % Mean Corpuscular Volume 89.2 FL Mean Corpuscular Hemoglobin 30.1 PG Mean Corpuscular Hemoglobin Concent 33.7 % Red Cell Distribution Width 13.3 % Platelet Count 261 TH/MM3 Mean Platelet Volume 7.7 FL Neutrophils (%) (Auto) 48.0 % Lymphocytes (%) (Auto) 44.6 % Monocytes (%) (Auto) 5.1 % Eosinophils (%) (Auto) 1.6 % Basophils (%) (Auto) 0.7 % Neutrophils # (Auto) 3.2 TH/MM3 Lymphocytes # (Auto) 3.0 TH/MM3 Monocytes # (Auto) 0.3 TH/MM3 Eosinophils # (Auto) 0.1 TH/MM3 Basophils # (Auto) 0.0 TH/MM3 CBC Comment DIFF FINAL Differential Comment Prothrombin Time 10.0 SEC Prothromb Time International Ratio 0.9 RATIO Activated Partial Thromboplast Time 25.4 SEC D-Dimer Quantitative (PE/DVT) LESS THAN 0.19 MG/L FEU Blood Urea Nitrogen 13 MG/DL Creatinine 1.02 MG/DL Random Glucose 112 MG/DL Total Protein 8.5 GM/DL Albumin 4.5 GM/DL Calcium Level 9.3 MG/DL Magnesium Level 2.2 MG/DL Alkaline Phosphatase 77 U/L Aspartate Amino Transf (AST/SGOT) 36 U/L Alanine Aminotransferase (ALT/SGPT) 30 U/L Total Bilirubin 0.3 MG/DL Sodium Level 137 MEQ/L Potassium Level 3.4 MEQ/L Chloride Level 103 MEQ/L Carbon Dioxide Level 24.3 MEQ/L Anion Gap 10 MEQ/L Estimat Glomerular Filtration Rate 55 ML/MIN Total Creatine Kinase 145 U/L Creatine Kinase MB 1.3 NG/ML Troponin I LESS THAN 0.02 NG/ML B-Type Natriuretic Peptide 35 PG/ML Lipase 199 U/L Urine Color LIGHT-YELLOW Urine Turbidity CLEAR Urine pH 6.5 Urine Specific Alpine 1.005 Urine Protein NEG mg/dL Urine Glucose (UA) NEG mg/dL Urine Ketones NEG mg/dL Urine Occult Blood NEG Urine Nitrite NEG Urine Bilirubin NEG Urine Urobilinogen LESS THAN 2.0 MG/DL Urine Leukocyte Esterase TRACE Urine RBC LESS THAN 1 /hpf Urine WBC 1 /hpf Urine Squamous Epithelial Cells <1 /hpf Urine Bacteria RARE /hpf Microscopic Urinalysis Comment CULT NOT INDICATED MDM Medical Decision Making Medical Screen Exam Complete: Yes Emergency Medical Condition: Yes Medical Record Reviewed: Yes Interpretation(s) Twelve-lead EKG was reviewed by me. Normal sinus rhythm, normal axis, nonspecific ST-T wave changes. Heart rate of 73 bpm Differential Diagnosis Gastroparesis, small bowel obstruction, acute gastritis Narrative Course 6:44 PM blood test results are back and within acceptable limit. Troponin is negative. Chest x-rays within normal limit. Patient was given IV morphine and IV Zofran. Awaiting for the CT of the abdomen and pelvis to be read. In my opinion patient's pain is mainly abdominal and not cardiac. 7:[address] scan of the abdomen and pelvis is normal. I will discharge this patient home at this point. Procedures EKG Prior to Arrival: No Diagnosis Primary Impression: Abdominal pain Qualified Codes: R10.13 - Epigastric pain Additional Impression: Chronic abdominal pain Referrals: Primary Care Physician Additional Instructions: Please follow-up with your primary care. Return to the ER if the condition worsens or any other new concerns. Med/Other Pt SpecificInfo: No Change to Meds Disposition: 01 DISCHARGE HOME Condition: Stable Rhiannon Win MD Aug 20, 2017 18:45
[2017-08-20 19:02] VITALS: BP 165/87; PULSE 73; RESP 18; O2SAT 98
--- NOTE | 2017-08-20 19:05 | RADRPT ---
EXAM DATE/TIME: 08/20/2017 18:28 [facility] COMPARISON: CT ABDOMEN & PELVIS W CONTRAST, October 24, 2016, 4:37. INDICATIONS : Abdomen pain with nausea and vomiting. ORAL CONTRAST: No oral contrast ingested. RADIATION DOSE: 11.15 CTDIvol (mGy) MEDICAL HISTORY : Cardiovascular disease. Hypertension. Diabetes mellitus type 2.Dementia SURGICAL HISTORY : None. ENCOUNTER: Initial ACUITY: 1 day PAIN SCALE: 10/10 LOCATION: Bilateral abdomen TECHNIQUE: Volumetric scanning of the abdomen and pelvis was performed. Using automated exposure control and ad justment of the mA and/or kV according to patient size, radiation dose was kept as low as reasonably achievable to obtain optimal diagnostic quality images. DICOM format image data is available electro nically for review and comparison. FINDINGS: LOWER LUNGS: There is stable linear scar in the lower lobes. LIVER: Moderate to severe diffuse low-density without lesion. There is fat sparing around the gallbladder fo ssa. There is no dilation of the biliary tree. No calcified gallstones. SPLEEN: Normal size without lesion. PANCREAS: Within normal limits. KIDNEYS: Normal in size and shape. There is no mass, stone, or hydronephrosis. There is an incidental 4 mm lo w-density lesion arising exophytically from the right mid kidney. This lesion is too small to charact erize. ADRENAL GLANDS: Within normal limits. VASCULAR: There is no aortic aneurysm. There is mild atherosclerotic disease. BOWEL/MESENTERY: The stomach, small bowel, and colon demonstrate no acute abnormality. There is no free intraperitone al air or fluid. The appendix is normal. ABDOMINAL WALL: Stable subcutaneous scar on the anterior abdominal wall. RETROPERITONEUM: There is no lymphadenopathy. BLADDER: No wall thickening or mass. REPRODUCTIVE: Within normal limits. INGUINAL: There is no lymphadenopathy or hernia. MUSCULOSKELETAL: No acute abnormality. CONCLUSION: 1. No acute finding is identified within the abdomen or pelvis. 2. Nonacute findings include hepatic steatosis and mild atherosclerotic disease. Phan English MD on August 20, 2017 at 18:58 Board Certified Radiologist. This report was verified electronically.
[2017-08-20] MEDS ORDERED: METOCLOPRAMIDE HCL 10 MG/2 ML VIAL IV PUSH ONE (19:30)
--- NOTE | 2017-08-21 19:06 | EKG ---
Date Performed: 08/20/2017 Time Performed: 16:31:20 PTAGE: 62 years EKG: Sinus rhythm NONSPECIFIC ST & T-WAVE ABNORMALITY BORDERLINE ECG Compared to prior tracing no significant change PREVIOUS TRACING : 10/24/2016 04.01 DOCTOR: Joanne Soler Interpretating Date/Time 08/21/2017 19:04:04
== END 2017-08-20 19:24 | disposition home or self-care (01) ==
LOC: NEPC 16:16
DX: R10.13 Epigastric pain (principal); G89.29 Other chronic pain; E11.43 Type 2 diabetes mellitus with diabetic autonomic (poly)neuropathy; K31.84 Gastroparesis; E78.00 Pure hypercholesterolemia, unspecified; I10 Essential (primary) hypertension; Z79.84 Long term (current) use of oral hypoglycemic drugs; Z87.891 Personal history of nicotine dependence
CPT/HCPCS: 71010; 74176; 80053; 81001; 82550; 82552; 83690; 83735; 83880; 84484; 85025; 85379; 85610; 85730; 93005; 96374; 96375; 99285; J2270; J2405; J2765

== ENCOUNTER 2017-08-21 18:02 | Emergency (ER) | payer OTHER ==
[~2017-08-21 18:02] MED LIST changes: -ACET325T PO; -BETH25 PO; +BETH25TA2 PO; -FLUT1SPR5 EACH NARE; -MIRA33504 PO; -OMEGCAP PO; +POLY17S PO; -ZOFR8TAB PO
[2017-08-21 18:04] VITALS: BP 227/107; PULSE 75; RESP 20; TEMP 98.5; O2SAT 98
[2017-08-21 20:14] VITALS: BP 189/89; PULSE 64; RESP 20; O2SAT 98
[2017-08-21] MEDS ORDERED: hydrALAZINE HCL 20 MG/ML VIAL IV PUSH ONE (20:15)
[2017-08-21] MEDS ORDERED: ALUMINUM/MAGNESIUM/SIMETH 30 ML CUP PO ONE (20:15)
[2017-08-21] MEDS ORDERED: LIDOCAINE VISCOUS 2% SOLN 15 ML UDC PO ONE (20:15)
[2017-08-21] MEDS ORDERED: ONDANSETRON HCL 4 MG/2 ML VIAL IVP ONE (20:15)
[2017-08-21 20:17] LABS: BASOPHIL % 0.6 % (0.0-2.0); EOSINOPHIL # 0.1 TH/MM3 (0-0.4); EOSINOPHIL % 1.2 % (0.0-4.0); HEMATOCRIT 40.8 % (35.0-46.0); HEMO FLAGS DIFF FINAL; LYMPH % 40.3 % (9.0-44.0); MEAN CELL VOLUME 88.8 FL (80.0-100.0); MEAN CORPUSCULAR HEMOGLOBIN 29.6 PG (27.0-34.0); MEAN CORPUSCULAR HGB CONC 33.4 % (32.0-36.0); MONO % 4.2 % (0.0-8.0); NEUT % 53.7 % (16.0-70.0); PLATELET COUNT 289 TH/MM3 (150-450); RED CELL DISTRIBUTION WIDTH 13.8 % (11.6-17.2); WHITE BLOOD COUNT 7.4 TH/MM3 (4.0-11.0)
--- NOTE | 2017-08-21 20:22 | PD ---
HPI Chief Complaint: Hypertension Time Seen by Provider: 20:08 Travel History International Travel<30 days: No Contact w/Intl Traveler<30days: No Traveled to known affect area: No History of Present Illness HPI PATIENT HAS NOT BEEN ABLE TO REACH OUT AND GET A HOLD OF HER PCP, DR TERESA TEJEDA TO MAKE ANY ADJUSTMENTS ON HER BP MEDICATION (PRESENTLY TAKING METOPROLOL 50MG BID). PATIENT STATES THAT USUALLY HER BP IS WELL CONTROLLED UNTIL THESE EPISODES OF BURNING SENSATION TO HER EPIGASTRIUM STARTED HAPPENING...DENIES ANY ALLEVIATING/AGGRAVATING FACTORS TO BP, HOWEVER SHE DID NOTICE THAT USING MYLANTA SHE GETS SOME RELIEF OF HER BURNING SENSATION. PFSH Past Medical History Hx Anticoagulant Therapy: Yes Blood Disorders: No Heart Rhythm Problems: Yes (AICD/LOOP RECORDER PLACED 08/25/16) Cancer: Yes (SKIN) Cardiac Catheterization: Yes Cardiovascular Problems: Yes High Cholesterol: Yes Chest Pain: No Congestive Heart Failure: No Dementia: Yes Diabetes: Yes Diminished Hearing: No Endocrine: Yes (DIABETIC TYPE 2) Gastrointestinal Disorders: Yes (GATROPORESIS) GERD: Yes Glaucoma: No Genitourinary: No Headaches: Yes (post concussion syndrome) Hepatitis: No Hiatal Hernia: No Hypertension: Yes Immune Disorder: No Musculoskeletal: Yes Neurologic: Yes (post-concussion syndrome, forgetfulness,) Reproductive: No Respiratory: No Integumentary: No Thyroid Disease: No Menopausal: Yes Tubal Ligation: Yes Past Surgical History Abdominal Surgery: Yes (LIPOSUCTION) AICD: No Body Medical Devices: LOOP RECORDER Cardiac Surgery: Yes (CARDIAC CATH) Coronary Artery Bypass Graft: No Ear Surgery: No Endocrine Surgery: No Eye Surgery: No Genitourinary Surgery: No Gynecologic Surgery: No Joint Replacement: No Neurologic Surgery: Yes (CERVICAL FUSION) Oral Surgery: Yes (DENTAL WORK) Pacemaker: No Thoracic Surgery: Yes (LOOP RECORDER) Other Surgery: Yes (liposuction) Social History Alcohol Use: Yes (occ) Tobacco Use: No (quit 5 yrs ago) Substance Use: No Allergies-Medications (Allergen,Severity, Reaction): Coded Allergies: acetaminophen (Unverified Allergy, Severe, VERTICO, 08/21/17) cyclobenzaprine (Unverified Allergy, Severe, TACHYCARDIA, NAUSEA, 08/21/17) oxycodone (Unverified Allergy, Severe, VERTICO, 08/21/17) propoxyphene (Unverified Allergy, Severe, VERTIGO, 08/21/17) Reported Meds & Prescriptions Reported Meds & Active Scripts Active Reported Polyethylene Glycol 3350 Powder (Polyethylene Glycol) 17 Gram Pow 17 Gm PO DAILY Bethanechol 25 Mg Tab 25 Mg PO QID Botox Inj (Onabotulinumtoxina) 100 Unit Inj 100 Units I-DERMAL ONCE Vitamin A18-Kgleb Acid (Cobalamine Combinations) 500-400 Mcg Tab 1 Tab PO DAILY Multiple Vitamin 1 Tab 1 Tab PO DAILY Metformin (Metformin HCl) 500 Mg Tab 500 Mg PO BIDPC With meals Metoprolol Tartrate 50 Mg Tab 50 Mg PO BID Isosorbide Mononitrate ER (Isosorbide Mononitrate) 30 Mg Jac 30 Mg PO DAILY Zocor (Simvastatin) 40 Mg Tab 40 Mg PO DAILY Aspir-81 (Aspirin) 81 Mg Tabdr Review of Systems Except as stated in HPI: all other systems reviewed are Neg Cardiovascular: Positive: Other (HI BP) Gastrointestinal: Positive: Abdominal Pain (EPIG BURNING SENSATION) Physical Exam Narrative GENERAL: SKIN: Warm and dry. HEAD: Atraumatic. Normocephalic. EYES: Pupils equal and round. No scleral icterus. No injection or drainage. ENT: No nasal bleeding or discharge. Mucous membranes pink and moist. NECK: Trachea midline. No JVD. CARDIOVASCULAR: Regular rate and rhythm. RESPIRATORY: No accessory muscle use. Clear to auscultation. Breath sounds equal bilaterally. GASTROINTESTINAL: Abdomen soft, MILDLY TTP OVER EPIG ONLY, WITHOUT REBOUND/ GUARDING/RIGIDITY, nondistended. MUSCULOSKELETAL: Extremities without clubbing, cyanosis, or edema. No obvious deformities. NEUROLOGICAL: Awake and alert. No obvious cranial nerve deficits. Motor grossly within normal limits. Five out of 5 muscle strength in the arms and legs. Normal speech. PSYCHIATRIC: Appropriate mood and affect; insight and judgment normal. Data Data Last Documented VS Vital Signs Date Time Temp Pulse Resp B/P (MAP) Pulse Ox O2 Delivery O2 Flow Rate FiO2 08/21/17 21:02 66 17 154/78 (103) 97 Room Air 08/21/17 18:04 98.5 Orders Orders Complete Blood Count With Diff (08/21/17 18:24) Electrocardiogram (08/21/17 ) Lipase (08/21/17 18:24) Comprehensive Metabolic Panel (08/21/17 18:24) Iv Access Insert/Monitor (08/21/17 20:13) NPO (08/21/17 20:13) Ondansetron Inj (Zofran Inj) (08/21/17 20:15) Al-Mag Hy-Si 40-40-4 Mg/Ml Liq (Mag-Al P (08/21/17 20:15) Lidocaine 2% Viscous (Xylocaine 2% Visco (08/21/17 20:15) Hydralazine Inj (Apresoline Inj) (08/21/17 20:15) Labs Laboratory Tests Test 08/21/17 19:20 White Blood Count 7.4 TH/MM3 Red Blood Count 4.60 MIL/MM3 Hemoglobin 13.6 GM/DL Hematocrit 40.8 % Mean Corpuscular Volume 88.8 FL Mean Corpuscular Hemoglobin 29.6 PG Mean Corpuscular Hemoglobin Concent 33.4 % Red Cell Distribution Width 13.8 % Platelet Count 289 TH/MM3 Mean Platelet Volume 7.5 FL Neutrophils (%) (Auto) 53.7 % Lymphocytes (%) (Auto) 40.3 % Monocytes (%) (Auto) 4.2 % Eosinophils (%) (Auto) 1.2 % Basophils (%) (Auto) 0.6 % Neutrophils # (Auto) 4.0 TH/MM3 Lymphocytes # (Auto) 3.0 TH/MM3 Monocytes # (Auto) 0.3 TH/MM3 Eosinophils # (Auto) 0.1 TH/MM3 Basophils # (Auto) 0.0 TH/MM3 CBC Comment DIFF FINAL Differential Comment Blood Urea Nitrogen 11 MG/DL Creatinine 0.89 MG/DL Random Glucose 117 MG/DL Total Protein 8.5 GM/DL Albumin 4.4 GM/DL Calcium Level 9.5 MG/DL Alkaline Phosphatase 75 U/L Aspartate Amino Transf (AST/SGOT) 40 U/L Alanine Aminotransferase (ALT/SGPT) 27 U/L Total Bilirubin 0.4 MG/DL Sodium Level 138 MEQ/L Potassium Level 3.9 MEQ/L Chloride Level 104 MEQ/L Carbon Dioxide Level 23.3 MEQ/L Anion Gap 11 MEQ/L Estimat Glomerular Filtration Rate 64 ML/MIN Lipase 187 U/L MDM Medical Decision Making Medical Screen Exam Complete: Yes Emergency Medical Condition: Yes Medical Record Reviewed: Yes Differential Diagnosis POORLY CONTROLLED HTN V GERD V DYSPEPSIA V PANCREATITIS Narrative Course PATIENT HAD A THOROUGH EVALUATION YESTERDAY AND AGAIN TODAY, MOST CONSISTENTLY FOUND BP TO BE PERSISTENTLY ELEVATED, WILL REFER PATIENT TO SCHOOL LABORATORY TECHNICIAN DR BECKY NATHAN TO ADJUST HER BP MEDS Diagnosis Primary Impression: Accelerated hypertension Additional Impression: Dyspepsia Referrals: Becky Nathan MD PLEASE CALL TO GET YOUR BLOOD PRESSURE MEDICATION ADJUSTED Disposition: 01 DISCHARGE HOME Condition: Stable Christiano Mcwilliams MD Aug 21, 2017 20:22
[2017-08-21 20:44] LABS: ANION GAP 11 MEQ/L (5-15); AST (GOT) 40 U/L (15-37); BICARBONATE 23.3 MEQ/L (21.0-32.0); BLOOD UREA NITROGEN 11 MG/DL (7-18); CHLORIDE 104 MEQ/L (98-107); GLOMERULAR FILTRATION RATE 64 ML/MIN (>89); POTASSIUM 3.9 MEQ/L (3.5-5.1); SODIUM (NA) 138 MEQ/L (136-145)
[2017-08-21 20:45] LABS: ALT (GPT) 27 U/L (10-53)
[2017-08-21 20:47] LABS: ALKALINE PHOSPHATASE 75 U/L (45-117); TOTAL BILIRUBIN ADULT 0.4 MG/DL (0.2-1.0)
[2017-08-21 21:02] VITALS: BP 154/78; PULSE 66; RESP 17; O2SAT 97
--- NOTE | 2017-08-22 09:42 | EKG ---
Date Performed: 08/21/2017 Time Performed: 20:36:28 PTAGE: 62 years EKG: Sinus rhythm LEFT VENTRICULAR HYPERTROPHY AND ST-T CHANGE ABNORMAL ECG PREVIOUS TRACING : 08/20/2017 16.31 DOCTOR: Kemal Webb Interpretating Date/Time 08/22/2017 09:37:45
== END 2017-08-22 06:20 | disposition home or self-care (01) ==
LOC: NEPC 18:02
DX: I10 Essential (primary) hypertension (principal); I51.7 Cardiomegaly; R94.31 Abnormal electrocardiogram [ECG] [EKG]; E78.00 Pure hypercholesterolemia, unspecified; F03.90 Unspecified dementia, unspecified severity, without behavioral disturbance, psychotic disturbance, mood disturbance, and anxiety; E11.43 Type 2 diabetes mellitus with diabetic autonomic (poly)neuropathy; K31.84 Gastroparesis; K21.9 Gastro-esophageal reflux disease without esophagitis; Z87.891 Personal history of nicotine dependence
CPT/HCPCS: 80053; 83690; 85025; 93005; 96374; 96375; 99284; J0360; J2405

== ENCOUNTER → 2017-10-11 | Outpatient (CLI) | payer OTHER ==
[~2017-10-11] MED LIST changes: +GADODIAMIDE PF 287 MG/ML 5 ML VIAL (for RAD MRI) IV PUSH ONE
--- NOTE | 2017-10-11 17:09 | RADRPT ---
EXAM DATE/TIME: 10/11/2017 13:40 [place] COMPARISON: CT ABDOMEN & PELVIS W/O CONTRAST, August 20, 2017, 18:28. INDICATIONS : Abnormal finding in liver and biliary tract. CONTRAST: 15 cc Omniscan (gadodiamide) IV MEDICAL HISTORY : Hypertension. Diabetes. SURGICAL HISTORY : Fusion, cervical. ENCOUNTER: Subsequent ACUITY: 1 day PAIN SCORE: 0/10 LOCATION: Abdomen. TECHNIQUE: Multiplanar, multisequence magnetic resonance imaging of the abdomen was performed without and with i ntravenous contrast. FINDINGS: LIVER: The liver demonstrates significant decreased signal intensity on opposed phased imaging. There are no focal lesions or evidence of bony duct dilatation. Oral vein is patent. BILIARY: There is no intra- or extra-hepatic biliary ductal dilatation. Gallbladder contains no stones. SPLEEN: Within normal limits. PANCREAS: Within normal limits. ADRENALS: Within normal limits. KIDNEYS: Normal size and signal intensity. There is no hydronephrosis or mass. 1.3 cm simple right renal cyst . OTHER: Aorta is nonaneurysmal. There is no lymphadenopathy. CONCLUSION: 1. Hepatic steatosis. 2. No acute process or biliary obstructive disease. 3. Simple right renal cyst. 4. Otherwise normal appearing pancreas, adrenal glands and kidneys. Jere Rogers MD on October 11, 2017 at 17:03 Board Certified Radiologist. This report was verified electronically.
== END ==
LOC: HRAD 12:22
PROVIDERS: ATTEND Family Medicine
DX: R93.2 Abnormal findings on diagnostic imaging of liver and biliary tract (principal)
CPT/HCPCS: 74183; A9579

== ENCOUNTER → 2018-04-01 | Outpatient (CLI) | payer OTHER ==
[~2018-04-01] MED LIST changes: -GADODIAMIDE PF 287 MG/ML 5 ML VIAL (for RAD MRI) IV PUSH ONE; +IOHEXOL 350 MG/ML 10 ML VIAL (for RAD DIAG) IVCONTRAST ONE
--- NOTE | 2018-04-01 15:27 | RADRPT ---
EXAM DATE: 04/01/2018 2:49 PM EDT AGE/SEX: 63 years / Female INDICATIONS: Diffuse abdomen pain. CLINICAL DATA: This is the patient's initial encounter. Patient reports that signs and symptoms have been present for 1 day and indicates a pain score of 3/10. MEDICAL/SURGICAL HISTORY: Gastroparesis. Gastroesophageal reflux disease. 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 Tubal ligation. ORAL CONTRAST: Prescribed oral contrast ingested. RADIATION DOSE: 6.64 CTDI (mGy) [place] [facility] [place] W CONTRAST, 10/24/2016. . TECHNIQUE: Multiple contiguous axial images were obtained through the abdomen and pelvis following b olus infusion of 91 ml Omnipaque 350 (iohexol) nonionic water-soluble contrast as a single exam dos e. Prescribed oral contrast ingested. Using automated exposure control and adjustment of the mA and/ or kV according to patient size, the radiation dose was kept as low as reasonably achievable to obtai n optimal diagnostic quality images. FINDINGS: Lower Lungs: There is linear planar suspected atelectasis at the lower lobes. Liver: There is diffuse decreased attenuation to the liver. No focal hepatic lesions are seen. Gallbl adder is unremarkable. Spleen: Homogeneous density without enlargement. Pancreas: Unremarkable without mass or calcification. Kidneys: There is normal enhancement without hydronephrosis or renal stones. There are renal cysts s een bilaterally measuring up to 1.4 cm. The largest cyst is at the lateral mid right kidney. Adrenal Glands: Unremarkable. Aorta: The aorta and proximal iliac vessels are grossly unremarkable without aneurysmal dilation. Bowel/Mesentery: The bowel loops are grossly unremarkable. The cecum and sigmoid colon have a normal configuration. The appendix is normal. Abdominal Wall: Intact. Retroperitoneum: No evidence of adenopathy in the retrocrural, para-aortic, or deep pelvic regions. Bladder: Contours are smooth. Reproductive Organs: No abnormal masses or calcifications seen. Inguinal: The inguinal region is unremarkable without evidence of adenopathy. Bony Structures: There is degenerative change in the lumbar spine. CONCLUSION: 1. No acute abnormality seen. 2. Hepatic steatosis. 3. Renal cysts. Electronically signed by: Phan Woo MD 04/01/2018 3:26 PM EDT
== END ==
LOC: HRAD 12:16
PROVIDERS: ATTEND Internal Medicine Gastroenterology
DX: K31.84 Gastroparesis (principal); R93.2 Abnormal findings on diagnostic imaging of liver and biliary tract; R10.9 Unspecified abdominal pain
CPT/HCPCS: 74177; Q9967